=== PATIENT | female | born 1940 | race Caucasian/White ===

== ENCOUNTER 2024-03-18 21:51 | Inpatient (IN) | payer MEDICARE, BC ==
[~2024-03-18] VITALS: Ht 154.9 cm; Wt 59.4 kg
[2024-03-19] MEDS ORDERED: MONT10TA22 PO (01:18)
[2024-03-19] MEDS ORDERED: ROSU20TA2 PO (01:18)
[2024-03-19] MEDS ORDERED: CLON0.5T PO (01:18)
[2024-03-19] MEDS ORDERED: FLUT16SP16 BNOSTRILS (01:18)
[2024-03-19] MEDS ORDERED: CITA40TA22 PO (01:18)
[2024-03-19] MEDS ORDERED: FLUT1BLS6 IH (01:18)
[2024-03-19] MEDS ORDERED: ASPI-1169 PO (01:18)
[2024-03-19] MEDS ORDERED: METH5TAB70 PO (01:18)
[2024-03-19] MEDS ORDERED: PANT40TA49 PO (01:18)
[2024-03-19] MEDS ORDERED: OMEG1000 PO (01:18)
[2024-03-19] MEDS ORDERED: LISI-659 PO (01:18)
[2024-03-19] MEDS ORDERED: AMLO10TA4 PO (01:18)
[2024-03-19] MEDS: ACETAMINOPHEN 325 MG TABLET PO PRN (02:27)
[2024-03-19] MEDS: BLOOD SUGAR DIAGNOSTIC 1 EACH STRIP IN ONE (02:29)
[2024-03-19] MEDS ORDERED: MAG HYDROX/AL HYDROX/SIMETH 30 ML UDC PO PRN (02:30)
[2024-03-19] MEDS ORDERED: LORAZEPAM 0.5 MG TABLET PO PRN (02:30)
[2024-03-19] MEDS ORDERED: MAGNESIUM HYDROXIDE 30 ML UDC PO PRN (02:30)
[2024-03-19] MEDS ORDERED: clonazePAM 0.5 MG TABLET PO PRN (03:00)
[2024-03-19 03:03] VITALS: BP 126/78; TEMP 98; O2SAT 98
[2024-03-19] MEDS: PANTOPRAZOLE 40 MG TABLET.DR PO SCH (07:45)
[2024-03-19 08:00] VITALS: BP 132/68; TEMP 97.9; O2SAT 98
[2024-03-19] MEDS: ASPIRIN 81 MG TAB.CHEW PO SCH (08:46)
[2024-03-19] MEDS: MONTELUKAST SODIUM (10MG) 10 MG TABLET PO SCH (08:46)
[2024-03-19] MEDS: ATORVASTATIN 40 MG TABLET PO SCH (08:46)
[2024-03-19] MEDS: LISINOPRIL (20MG) 20 MG TABLET PO SCH (08:46)
[2024-03-19] MEDS: AMLODIPINE BESYLATE 10 MG TABLET PO SCH (08:47)
[2024-03-19] MEDS ORDERED: CITALOPRAM HYDROBROMIDE 20 MG TABLET PO SCH (09:00)
[2024-03-19 10:15] LABS: EOSINOPHILS # (AUTO) 0.1 K/uL (0.0-0.7); EOSINOPHILS % (AUTO) 2.3 % (0.0-6.0); HEMATOCRIT 37 % (33-45); HEMOGLOBIN 12.5 g/dL (11.5-14.8); LYMPHOCYTES # (AUTO) 1.2 K/uL (0.8-4.8); LYMPHOCYTES % (AUTO) 24.2 % (20.0-44.0); MEAN CORPUSCULAR HEMOGLOBIN 29 PG (26.0-33.0); MEAN CORPUSCULAR HGB CONC 34 g/dl (31.0-36.0); MEAN CORPUSCULAR VOLUME 87 fL (82-100); MONOCYTES # (AUTO) 0.5 K/uL (0.1-1.30); MONOCYTES % (AUTO) 10.3 % (2.0-12.0); NEUTROPHILS % (AUTO) 62.2 % (43.0-81.0); PLATELET COUNT (AUTO) 206 K/uL (150-450); RED BLOOD CELL COUNT(AUTO) 4.24 MIL/uL (4.0-5.2); RED CELL DISTRIBUTION WIDTH 15.4 % (11.5-15.0); WHITE BLOOD COUNT (AUTO) 4.8 K/uL (4.3-11.0)
[2024-03-19 10:59] LABS: ALANINE AMINOTRANSFERASE 17 U/L (12-78); ALBUMIN 2.7 g/dL (3.4-5.0); ALKALINE PHOSPHATASE 69 U/L (46-116); ASPARTATE AMINOTRANSFERASE 11 U/L (15-37); BILIRUBIN,TOTAL 0.4 mg/dL (0.2-1.0); CALCIUM, SERUM 8.4 mg/dL (8.5-10.1); CARBON DIOXIDE 26 mmol/L (21-32); CHLORIDE 103 mmol/L (98-107); CHOLESTEROL 130 mg/dL (<200); CREATININE 0.7 mg/dL (0.6-1.3); GLUCOSE 154 mg/dL (74-106); HDL CHOLESTEROL 61 mg/dL (40-60); LDL 56 mg/dL (0-99); POTASSIUM 3.5 mmol/L (3.5-5.1); SODIUM SERUM 137 mmol/L (136-145); TOTAL PROTEIN, SERUM 6.2 g/dL (6.4-8.2); TRIGLYCERIDES 43 mg/dL (30-150); UREA NITROGEN, BLOOD 14 mg/dL (7-18)
[2024-03-19] MEDS: METHIMAZOLE (5MG) 5 MG TABLET PO SCH (11:31)
[2024-03-19] MEDS: ESCITALOPRAM OXALATE (10 MG) 10 MG TABLET PO SCH (13:31)
[2024-03-19 16:00] VITALS: BP 117/59; TEMP 98.4; O2SAT 97
[2024-03-19 20:00] VITALS: BP 113/62; TEMP 98.5; O2SAT 99
[2024-03-19] MEDS: clonazePAM 0.5 MG TABLET PO PRN (21:33)
[2024-03-20 08:00] VITALS: BP 106/90; TEMP 97.8; O2SAT 100
[2024-03-20] MEDS: ENSURE ENLIVE 237 ML LIQUID (VANILLA) PO SCH (08:43)
[2024-03-20] MEDS: FLUTICASONE INH SCH (15:06)
[2024-03-20] MEDS: VILANTER INH SCH (15:06)
[2024-03-20] MEDS: UMECLIDIN INH SCH (15:06)
[2024-03-20 16:05] VITALS: BP 109/74; TEMP 98; O2SAT 95
[2024-03-20] MEDS: OMEGA PO SCH (16:07)
[2024-03-20 20:30] VITALS: BP 112/50; TEMP 98.2; O2SAT 96
[2024-03-20] MEDS: TEMAZEPAM 7.5 MG CAPSULE PO PRN (21:49)
[2024-03-21 08:00] VITALS: BP 112/53; TEMP 97.7; O2SAT 97
[2024-03-21 16:00] VITALS: BP 100/52; TEMP 98.1; O2SAT 97
[2024-03-21 21:19] VITALS: BP 136/48; TEMP 98.1; O2SAT 98
[2024-03-22 08:00] VITALS: BP 121/51; TEMP 98.1; O2SAT 96
[2024-03-22 16:00] VITALS: BP 126/43; TEMP 97.7; O2SAT 96
[2024-03-22 21:10] VITALS: BP 110/65; TEMP 98.2; O2SAT 97
[2024-03-23 08:00] VITALS: BP 128/65; TEMP 98.1; O2SAT 97
[2024-03-23 16:00] VITALS: BP 128/56; TEMP 98; O2SAT 99
[2024-03-23 20:00] VITALS: BP 123/56; TEMP 98.2; O2SAT 99
[2024-03-23] MEDS: ESCITALOPRAM OXALATE (10 MG) 10 MG TABLET PO SCH (21:00)
[2024-03-24 08:00] VITALS: BP 116/58; TEMP 98.6; O2SAT 98
[2024-03-24] MEDS: FLUTICASONE PROPIONATE 16 GM BOTTLE NS PRN (08:28)
[2024-03-24 16:00] VITALS: BP 126/54; TEMP 98.2; O2SAT 97
[2024-03-24 20:00] VITALS: BP 107/89; TEMP 97.9; O2SAT 96
[2024-03-25 08:00] VITALS: BP 143/64; TEMP 98; O2SAT 95
[2024-03-25 09:21] VITALS: BP 143/64
== END 2024-03-25 13:15 | disposition home or self-care (01) | DRG 885 ==
LOC: ER 22:10 → GPS 03-19 00:59
PROVIDERS: ADMIT Psychiatry & Neurology Psychosomatic Medicine; ATTEND Nurse Practitioner Acute Care
DX: F33.9 Major depressive disorder, recurrent, unspecified (principal); R45.851 Suicidal ideations; F02.83 Dementia in other diseases classified elsewhere, unspecified severity, with mood disturbance; F41.1 Generalized anxiety disorder; Z88.0 Allergy status to penicillin; Z90.710 Acquired absence of both cervix and uterus; J44.9 Chronic obstructive pulmonary disease, unspecified; Z79.82 Long term (current) use of aspirin; E05.90 Thyrotoxicosis, unspecified without thyrotoxic crisis or storm; E78.5 Hyperlipidemia, unspecified; K21.9 Gastro-esophageal reflux disease without esophagitis; I10 Essential (primary) hypertension; G30.9 Alzheimer's disease, unspecified; Z87.891 Personal history of nicotine dependence
CPT/HCPCS: 36415; 80053-TC; 80061-TC; 85025-TC; 87081-TC; 97112-TC; 97116-TC; 97530-TC